=== PATIENT | male | born 1990 | race Caucasian/White ===

== ENCOUNTER 2020-05-13 19:07 | Emergency (ER) | payer OTHER ==
[2020-05-13 19:20] VITALS: BP 154/80; PULSE 59; TEMP 98; BMI 43.0
[2020-05-13] MEDS ORDERED: TETRACAINE 0.5% HCL 0.6ML DROPPER.BOTTLE OD ONE (19:48)
[2020-05-13] MEDS ORDERED: FLUORESCEIN NA 1 EA STRIP OD ONE (19:48)
[2020-05-13] MEDS ORDERED: TETRACAINE 0.5% OPHTH SOLN 2 ML BOTTLE ONE (19:51)
== END 2020-05-13 20:40 | disposition home or self-care (01) ==
LOC: JER 19:07
DX: T15.91XA Foreign body on external eye, part unspecified, right eye, initial encounter (principal)
CPT/HCPCS: 99283-25